=== PATIENT | female | born 1945 | race Caucasian/White ===

== ENCOUNTER 2018-06-19 07:39 | Day surgery (SDC) | payer MEDICARE, OTHER ==
[2018-06-19] MEDS ORDERED: fentaNYL 100 MCG/2 ML SDV ONE (08:25)
[2018-06-19] MEDS ORDERED: Midazolam 1 MG/ML 2 ML SDV ONE (08:25)
[2018-06-19] MEDS ORDERED: Propofol 200 MG/20 ML SDV ONE (08:28)
[2018-06-19] MEDS ORDERED: Lactated Ringers 1,000 ML IV SCH (09:00)
--- NOTE | 2018-06-19 10:42 | OR ---
DATE OF PROCEDURE: 06/19/2018 PREOPERATIVE DIAGNOSIS: Brother with colon polyps. POSTOPERATIVE DIAGNOSES: Diverticulosis, brother with colon polyps. PROCEDURE: Colonoscopy to the cecum. SURGEON: Ramses Mercado MD ANESTHESIA: IV anesthesia with monitored anesthesia care. INDICATION: This 72-year-old white female is referred for a colonoscopy because of a strong family history of colon polyps. Her brother had colon polyps. She is told she should have a colonoscopy every 5 years. Her last colonoscopic exam was done 5 years ago. I counseled her for the procedure, including risks and alternatives, and she gave her informed consent to proceed. PROCEDURE IN DETAIL: The patient was placed in the left lateral decubitus position. IV anesthesia was administered by the Anesthesia Service. Time-out was held. A rectal exam was performed, which was unremarkable. The flexible video Olympus colonoscope was introduced through her anus, up her rectum, out her colon, all the way to the cecum. Once the cecum was reached, the scope was slowly withdrawn examining the mucosa throughout. No mucosal abnormalities were noted until we reached the left colon. Here and in the sigmoid colon, we saw multiple diverticula. There was no bleeding or inflammation associated with any of them. The scope was retroflexed in the rectum with the distal rectum appearing unremarkable. The scope was straightened and removed. She tolerated the procedure well. Ramses Mercado MD /[id number]
== END 2018-06-19 11:15 | disposition home or self-care (01) ==
LOC: JP.SDS 07:39
PROVIDERS: ATTEND Surgery
DX: Z12.11 Encounter for screening for malignant neoplasm of colon (principal); K57.30 Diverticulosis of large intestine without perforation or abscess without bleeding; I10 Essential (primary) hypertension; E78.5 Hyperlipidemia, unspecified; I27.20 Pulmonary hypertension, unspecified; K21.9 Gastro-esophageal reflux disease without esophagitis; Z83.71 Family history of colonic polyps; Z88.5 Allergy status to narcotic agent; Z79.899 Other long term (current) drug therapy
CPT/HCPCS: J2250; J2704; J3010; J7120

== ENCOUNTER 2022-01-15 07:43 | Day surgery (SDC) | payer MEDICARE ==
[2022-01-15] MEDS ORDERED: Midazolam 1 MG/ML 2 ML SDV ONE (07:58)
[2022-01-15] MEDS ORDERED: fentaNYL 100 MCG/2 ML SDV ONE (07:58)
[2022-01-15] MEDS ORDERED: Propofol 200 MG/20 ML SDV ONE (07:58)
[2022-01-15] MEDS ORDERED: Lactated Ringers 1,000 ML IV SCH (08:30)
== END 2022-01-15 10:50 | disposition home or self-care (01) ==
LOC: JP.SDS 07:43
PROVIDERS: ATTEND Family Medicine
DX: K21.9 Gastro-esophageal reflux disease without esophagitis (principal); I10 Essential (primary) hypertension; E78.5 Hyperlipidemia, unspecified; I80.8 Phlebitis and thrombophlebitis of other sites; Z88.6 Allergy status to analgesic agent; Z88.5 Allergy status to narcotic agent; Z91.030 Bee allergy status; Z79.810 Long term (current) use of selective estrogen receptor modulators (SERMs); Z79.83 Long term (current) use of bisphosphonates; Z79.899 Other long term (current) drug therapy
CPT/HCPCS: 43235; J2250; J2704; J3010; J7120

== ENCOUNTER 2022-03-23 07:32 | Day surgery (SDC) | payer MEDICARE ==
[~2022-03-23 07:32] MED LIST: Propofol 200 MG/20 ML SDV ONE
[2022-03-23] MEDS ORDERED: Lactated Ringers 1,000 ML IV SCH (08:30)
== END 2022-03-23 10:47 | disposition home or self-care (01) ==
LOC: JP.SDS 07:32
PROVIDERS: ATTEND Student in an Organized Health Care Education/Training Program
DX: Z12.11 Encounter for screening for malignant neoplasm of colon (principal); K57.30 Diverticulosis of large intestine without perforation or abscess without bleeding; I10 Essential (primary) hypertension; K21.9 Gastro-esophageal reflux disease without esophagitis; Z88.6 Allergy status to analgesic agent; Z88.0 Allergy status to penicillin; Z79.899 Other long term (current) drug therapy
CPT/HCPCS: G0121; J2704; J7120

== ENCOUNTER 2022-07-20 14:37 | Inpatient (IN) | payer MEDICARE ==
[2022-07-20] MEDS ORDERED: Ondansetron 4 MG/2 ML SDV IV PRN (14:44)
[2022-07-20] MEDS ORDERED: Sodium Chloride 0.9% 10 ML Syringe FLUSH PRN (14:44)
[2022-07-20 15:22] LABS: ESTIMATED GFR 52 mL/min (>60)
[2022-07-20] MEDS: Sodium Chloride 0.9% 1,000 ML IV SCH (15:54)
[2022-07-20 16:52] LABS: CORONAVIRUS COVID-19 NAA NEGATIVE (NEGATIVE)
[2022-07-20] MEDS ORDERED: Potassium Chloride 20 MEQ Tab.ER PO ONE (17:00)
[2022-07-20] MEDS: guaiFENesin 100 MG/5 ML Soln 10 ML UD Cup PO PRN (20:13)
[2022-07-20] MEDS ORDERED: Rosuvastatin 10 MG Tab PO SCH (21:00)
[2022-07-20] MEDS: Rosuvastatin 10 MG Tab PO SCH (21:09)
[2022-07-20] MEDS: Potassium Chloride 20 MEQ Tab.ER PO ONE ×2 (21:09→22:06)
[2022-07-20] MEDS: Sotalol 80 MG Tab PO SCH (21:09)
[2022-07-21] MEDS: Sodium Chloride 0.9% 1,000 ML IV SCH (04:09)
[2022-07-21] MEDS: guaiFENesin 100 MG/5 ML Soln 10 ML UD Cup PO PRN (08:04)
[2022-07-21] MEDS: Sotalol 80 MG Tab PO SCH ×2 (08:04→21:19)
[2022-07-21] MEDS: Losartan 50 MG Tab PO SCH (08:05)
[2022-07-21] MEDS ORDERED: ceFAZolin 2 GM in Sodium Chloride 0.9% 50 ML IV ONE (08:15)
[2022-07-21] MEDS ORDERED: Codeine/guaiFENesin 10-100 MG/5 ML Syrup 5 ML Cup PO PRN (14:14)
[2022-07-21] MEDS: Dextrose 5%-Lactated Ringers 1,000 ML IV SCH (14:25)
[2022-07-21] MEDS: Benzonatate 100 MG Cap PO PRN (14:27)
[2022-07-21] MEDS: Rosuvastatin 10 MG Tab PO SCH (21:20)
[2022-07-22] MEDS: Acetaminophen 325 MG Tab PO PRN ×2 (03:04→21:23)
[2022-07-22 05:04] LABS: ESTIMATED GFR 76 mL/min (>60)
[2022-07-22] MEDS ORDERED: fentaNYL 100 MCG/2 ML SDV ONE (07:51)
[2022-07-22] MEDS ORDERED: Propofol 200 MG/20 ML SDV ONE (07:51)
[2022-07-22] MEDS ORDERED: Midazolam 1 MG/ML 2 ML SDV ONE (07:51)
[2022-07-22] MEDS: Losartan 50 MG Tab PO SCH (08:28)
[2022-07-22] MEDS: Sotalol 80 MG Tab PO SCH ×2 (08:28→21:18)
[2022-07-22] MEDS ORDERED: Bupivacaine 0.5% 50 ML MDV ONE (10:12)
[2022-07-22] MEDS ORDERED: Lidocaine 1% with EPINEPHrine 1:100,000 50 ML MDV ONE (10:12)
[2022-07-22] MEDS ORDERED: Meropenem 500 MG SDV ONE (10:12)
[2022-07-22] MEDS ORDERED: Lactated Ringers 1,000 ML ONE (12:23)
[2022-07-22] MEDS ORDERED: Bupivacaine 0.5% 50 ML MDV INJECT ONE ×2 (12:30)
[2022-07-22] MEDS ORDERED: Lidocaine 1% with EPINEPHrine 1:100,000 50 ML MDV INJECT ONE ×2 (12:31)
[2022-07-22] MEDS ORDERED: Meropenem 500 MG SDV IRR ONE (12:32)
[2022-07-22] MEDS ORDERED: Linezolid 600 MG/300 ML Premix Bag IRR ONE (12:39)
[2022-07-22] MEDS: ceFAZolin 1 GM in Premix Bag 1 BAG IV SCH ×2 (15:02→22:54)
[2022-07-22] MEDS: Dextrose 5%-Lactated Ringers 1,000 ML IV SCH (15:13)
[2022-07-22] MEDS: Benzonatate 100 MG Cap PO PRN (21:17)
[2022-07-22] MEDS: Rosuvastatin 10 MG Tab PO SCH (21:19)
[2022-07-23] MEDS: Benzonatate 100 MG Cap PO PRN ×2 (05:22→15:06)
[2022-07-23] MEDS: Acetaminophen 325 MG Tab PO PRN (05:22)
[2022-07-23] MEDS: ceFAZolin 1 GM in Premix Bag 1 BAG IV SCH (05:33)
[2022-07-23] MEDS: Sotalol 80 MG Tab PO SCH (08:25)
[2022-07-23] MEDS: Losartan 50 MG Tab PO SCH (08:26)
== END 2022-07-23 17:00 | disposition home or self-care (01) | DRG 244 ==
LOC: JP.MS 14:37 → OBSVTOIN 14:37 → JP.ICU 17:05
PROVIDERS: ADMIT Hospitalist; ATTEND Hospitalist
PROC: 0JH606Z Insertion of Pacemaker, Dual Chamber into Chest Subcutaneous Tissue and Fascia, Open Approach (ICD-10-PCS; principal; 2022-07-22)
PROC: 02H63JZ Insertion of Pacemaker Lead into Right Atrium, Percutaneous Approach (ICD-10-PCS; 2022-07-22)
PROC: 02HK3JZ Insertion of Pacemaker Lead into Right Ventricle, Percutaneous Approach (ICD-10-PCS; 2022-07-22)
DX: I49.5 Sick sinus syndrome (principal); I48.0 Paroxysmal atrial fibrillation; I10 Essential (primary) hypertension; Z20.822 Contact with and (suspected) exposure to COVID-19; H91.90 Unspecified hearing loss, unspecified ear; E78.00 Pure hypercholesterolemia, unspecified; K21.9 Gastro-esophageal reflux disease without esophagitis; M54.9 Dorsalgia, unspecified; G89.29 Other chronic pain; H54.7 Unspecified visual loss; Z98.49 Cataract extraction status, unspecified eye; Z90.710 Acquired absence of both cervix and uterus; Z91.030 Bee allergy status; Z88.5 Allergy status to narcotic agent; Z79.82 Long term (current) use of aspirin; Z79.899 Other long term (current) drug therapy; Z86.16 Personal history of COVID-19
CPT/HCPCS: 0241U; 36415; 71046; 71046-26; 76000; 80048; 80053; 81001; 83735; 83880; 84100; 85025; 85027; 93005; 97161-GP; 97535-GP; A9270-GY; C1898; J0690; J2020; J2185; J2250; J2704; J3010; J3490; J7030; J7120; J7121

== ENCOUNTER 2025-04-06 04:03 | Emergency (ER) | payer MEDICARE | END 2025-04-06 05:05 | disposition home or self-care (01) | LOC: JP.ED 04:03 | DX: I10 Essential (primary) hypertension (principal); R09.89 Other specified symptoms and signs involving the circulatory and respiratory systems; E78.00 Pure hypercholesterolemia, unspecified; K21.9 Gastro-esophageal reflux disease without esophagitis; Z86.16 Personal history of COVID-19; Z90.710 Acquired absence of both cervix and uterus; Z79.899 Other long term (current) drug therapy; Z79.01 Long term (current) use of anticoagulants; Z79.890 Hormone replacement therapy; Z91.030 Bee allergy status; Z88.5 Allergy status to narcotic agent; Z88.8 Allergy status to other drugs, medicaments and biological substances | CPT/HCPCS: 99283 ==